=== PATIENT | male | born 1965 | race Caucasian/White ===

== ENCOUNTER 2019-12-09 09:42 | Day surgery (SDC) | payer OTHER ==
[~2019-12-09 09:42] MED LIST: Midazolam 1 MG/ML 2 ML SDV ONE; Propofol 200 MG/20 ML SDV ONE
[2019-12-09] MEDS ORDERED: Sodium Chloride 0.9% 10 ML Syringe FLUSH PRN (09:45)
[2019-12-09] MEDS: Lactated Ringers 1,000 ML IV SCH (10:22)
[2019-12-09] MEDS ORDERED: Propofol 200 MG/20 ML SDV ONE ×2 (10:48→11:44)
[2019-12-09] MEDS ORDERED: Glycopyrrolate 0.2 MG/ML SDV ONE (10:48)
[2019-12-09] MEDS ORDERED: Midazolam 1 MG/ML 2 ML SDV ONE (10:48)
[2019-12-09] MEDS ORDERED: Lidocaine 2% 5 ML SDV ONE (10:48)
--- NOTE | 2019-12-09 10:48 | PCM.PN ---
- General Info Date of Service: 12/09/19 - Review of Systems Systems Review Comment:: 54-year-old male referred for EGD and colonoscopy. He has a long-standing history of heartburn. He takes Prilosec for this. He has not had a previous colonoscopy. He has been noticing some recent hematochezia. He is medically stable to proceed today. His recent history and physical is reviewed and no significant changes are noted. I have discussed the proposed EGD and colonoscopy with the patient. Risks such as but not limited to bleeding and GI injury reviewed. He agrees to proceed. - Patient Data Vitals - Most Recent: Last Vital Signs Temp 98.5 F 12/09/19 10:23 Pulse 88 12/09/19 10:23 Resp 20 12/09/19 10:23 BP 157/99 H 12/09/19 10:23 Pulse Ox 99 12/09/19 10:23 Weight - Most Recent: 116.573 kg Med Orders - Current: Current Medications Lactated Ringer's (Ringers, Lactated) 1,000 mls @ 125 mls/hr IV ASDIRECTED YURI Last Admin: 12/09/19 10:22 Dose: 125 mls/hr Sodium Chloride (Saline Flush) 10 ml FLUSH ASDIRECTED PRN PRN Reason: Keep Vein Open Discontinued Medications Midazolam HCl (Versed 1 Mg/Ml) Confirm Administered Dose 2 mg .ROUTE .STK-MED ONE Stop: 12/09/19 08:41 Propofol (Diprivan 20 Ml) Confirm Administered Dose 400 mg .ROUTE .STK-MED ONE Stop: 12/09/19 08:41 Sepsis Event Note - Focused Exam Vital Signs: Vital Signs Temp Pulse Resp BP Pulse Ox 12/09/19 10:23 98.5 F 88 20 157/99 H 99 Date Exam was Performed: 12/09/19 Time Exam was Performed: 10:47 - Problem List Review Problem List Initiated/Reviewed/Updated: Yes - My Orders Last 24 Hours: My Active Orders 12/09/19 09:45 Patient Status [ADT] Routine Peripheral IV Care [RC] . DIRECTED Verify Patient Consent Obtain [RC] ROUTINE Lactated Ringers [Ringers, Lactated] 1,000 ml IV ASDIRECTED Sodium Chloride 0.9% [Saline Flush] 10 ml FLUSH ASDIRECTED PRN Peripheral IV Insertion Adult [OM.PC] Routine - Assessment Assessment:: heartburn Rectal bleeding - Plan Plan:: EGD and colonoscopy
--- NOTE | 2019-12-09 11:52 | PCM.OPNOTE ---
- General Post-Op/Procedure Note Date of Surgery/Procedure: 12/09/19 Operative Procedure(s): EGD with biopsy and Colonoscopy with Polypectomy Findings: Mild irregularity of GE Jct with short tongues of salmon colored mucosa 2 small sigmoid colon polyps Moderate Sigmoid Diverticulosis Pre Op Diagnosis: Heartburn. Rectal bleeding Post-Op Diagnosis: Reflux esophagits. Colon Polyps. Sigmoid Diverticulosis Anesthesia Technique: MAC Primary Surgeon: Danial Mantilla Pathology: Biopsies of Gastric Antrum and distal esophagus Colon polyps EBL in mLs: 3 Complications: None Condition: Good
--- NOTE | 2019-12-09 15:49 | OR ---
Date of Procedure: 12/09/2019 PREOPERATIVE DIAGNOSIS: Heartburn, rectal bleeding. POSTOPERATIVE DIAGNOSES: Reflux esophagitis, colon polyps, sigmoid diverticulosis. OPERATION PERFORMED: Esophagogastroduodenoscopy with biopsy and colonoscopy with polypectomy. INDICATIONS FOR SURGERY: This 54-year-old male has a longstanding history of heartburn with some breakthrough symptoms even on Prilosec. He also has never had a colon evaluation previously and has had recently some rectal bleeding. FINDINGS: On upper endoscopy, the patient does have some irregularity of the GE junction with short tongues of salmon-colored mucosa extending up approximately 1 cm into the distal esophagus. The remainder of the distal esophagus, stomach, and duodenum appeared normal. On colonoscopy, the patient has two sessile polyps in the sigmoid region approximately 20 cm from the anal verge. These are each 5 to 6 mm in size. He also has a moderate degree of sigmoid diverticulosis. This does not appear to be acutely inflamed, or otherwise, complicated. PROCEDURE IN DETAIL: The patient was taken to the operating room. He was given intravenous sedation. His throat was topically anesthetized. The Olympus gastroscope was advanced through a mouth guard into the oral cavity. Under direct visualization, the scope was then carefully advanced down through the oropharynx and into the esophagus. The scope was advanced through the esophagus, stomach, and into the duodenum, where examination to the third portion was performed. Careful examination of the duodenal mucosa as visualized was carried out with no abnormalities were seen. The scope was withdrawn back into the stomach where random biopsies of the antrum were taken to rule out H. pylori. Full examination of the stomach including retroflexed examination of the fundus was performed. The GE junction was carefully examined, and with the irregularity seen here, biopsies were taken of the area of the presumed GE junction as well as the distal esophagus. The examination was then completed as the scope was withdrawn. Attention was turned to colonoscopy. Digital rectal exam was performed showing no rectal masses. The Olympus colonoscope was inserted into the rectum. Retroflexed examination of the rectal canal was performed. The scope was advanced to the sigmoid region where at the 20 cm level 2 above-described polyps were identified. These were each removed with a cautery snare and retrieved into a polyp trap. They were submitted as a single specimen. The scope was then carefully advanced under direct visualization through the entire length of the colon until the cecum was reached. Cecal acquisition was confirmed by noting the normal internal cecal anatomy including the appendiceal orifice and ileocecal valve. The light was also noted to transilluminate the abdominal wall in the right lower quadrant. After examining the cecum, the scope was slowly withdrawn sequentially re-examining the colonic segments until the entire colon and rectum had been fully examined. The scope was removed and the patient was taken from the operating room in satisfactory condition. ESTIMATED BLOOD LOSS: 3 mL. COMPLICATIONS: None. PROGNOSIS: Good. ASAD Mantilla MD /[id number]
== END 2019-12-09 12:30 | disposition home or self-care (01) ==
LOC: LL.SDS 09:42
PROVIDERS: ATTEND Surgery
DX: D12.5 Benign neoplasm of sigmoid colon (principal); K21.0 Gastro-esophageal reflux disease with esophagitis; K57.31 Diverticulosis of large intestine without perforation or abscess with bleeding; K31.89 Other diseases of stomach and duodenum; I10 Essential (primary) hypertension; F17.210 Nicotine dependence, cigarettes, uncomplicated; Z79.899 Other long term (current) drug therapy; Z88.0 Allergy status to penicillin
CPT/HCPCS: J2001; J2250; J2704; J3490; J7120